=== PATIENT | male | born 1955 | race African-American/Black ===

== ENCOUNTER → 2016-11-06 | Outpatient (CLI) | payer OTHER ==
[2016-01-21 02:18] VITALS: BP 157/76
--- NOTE | 2016-11-06 09:38 | RAD ---
HISTORY: Right wrist pain without injury. Study: Three views of the right wrist. Comparison: Right wrist dated May 06, 2014. Findings: Healed right distal radius fracture. 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 Healed ri ght distal 5th metacarpal fracture. No acute cortical disruption or dislocation can be identified. No significant soft tissue swelling or injury can be seen. IMPRESSION: Chronic findings as above. Reported By:
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
== END | disposition home or self-care (01) | DRG 556 ==
LOC: RAD 09:10
PROVIDERS: ATTEND Plastic Surgery
DX: M79.641 Pain in right hand (principal); M19.031 Primary osteoarthritis, right wrist; M19.041 Primary osteoarthritis, right hand
CPT/HCPCS: 73100; 73130

== ENCOUNTER 2017-06-08 22:38 | Emergency (ER) | payer BC, OTHER ==
[2017-06-08 22:57] VITALS: BP 117/59; BMI 18.2
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
[2017-06-08] MEDS ORDERED: DEMEROL INJ IM ONE (23:33)
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
[2017-06-09] MEDS ORDERED: DEMEROL INJ ONE (00:59)
== END 2017-06-09 01:02 | disposition home or self-care (01) ==
LOC: ER 22:38
DX: R22.0 Localized swelling, mass and lump, head (principal); Y04.2XXA Assault by strike against or bumped into by another person, initial encounter
CPT/HCPCS: 70150; 96372; 99282; 99283; J2175

== ENCOUNTER 2022-06-07 15:23 | Observation (INO) ==
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
[2022-06-07 16:59] LABS: BASOPHILS % (AUTO) 0.5 % (0.2-1.0); EOSINOPHILS % (AUTO) 0.4 % (0.9-2.9); HEMOGLOBIN 12.8 g/dL (13.5-18.0); LYMPHOCYTES # (AUTO) 2.9 X10^3/uL (1.3-2.9); LYMPHOCYTES % (AUTO) 33.8 % (21.0-51.0); MEAN CORPUSCULAR HEMOGLOBIN 31.4 pg (27.0-34.0); MEAN CORPUSCULAR HGB CONC 34.5 g/dL (33.0-35.0); MEAN CORPUSCULAR VOLUME 91.1 fL (80.0-100.0); MEAN PLATELET VOLUME 7.9 fL (7.4-11.0); MONOCYTES # (AUTO) 0.5 x10^3/uL (0.3-0.8); MONOCYTES % (AUTO) 5.6 % (0.0-13.0); NEUTROPHILS # (AUTO) 5.2 x10^3/uL (2.2-4.8); NEUTROPHILS % (AUTO) 59.7 % (42.0-75.0); RED BLOOD COUNT 4.07 X10^6/uL (4.7-6.0); RED CELL DISTRIBUTION WIDTH 13.6 % (11.6-16.5); WHITE BLOOD COUNT 8.7 X10^3/uL (3.6-10.0)
[2022-06-07 17:11] LABS: ALANINE AMINOTRANSFERASE 32 Units/L (12-78); ALBUMIN 3.4 g/dL (3.4-5.0); ALKALINE PHOSPHATASE 59 Units/L (46-116); ASPARTATE AMINO TRANSFERASE 33 Units/L (15-37); BLOOD UREA NITROGEN 11 mg/dL (7-18); CALCIUM 9.1 mg/dL (8.5-10.1); CARBON DIOXIDE 25.7 mmol/L (21-32); CHLORIDE 100 mmol/L (98-107); CREATININE 0.78 mg/dL (0.70-1.30); SODIUM 137 mmol/L (136-145); TOTAL PROTEIN 7.1 g/dL (6.4-8.2); eGFR NON BLACK RACES > 60 (>60)
[2022-06-07 17:19] LABS: LACTIC ACID 1.7 mmol/L (0.4-2.0)
[2022-06-07] MEDS ORDERED: TORADOL 30 MG VIAL IVP PRN (18:37)
[2022-06-07] MEDS ORDERED: DILAUDID INJ IVP PRN (18:37)
[2022-06-07] MEDS ORDERED: ROXICODONE TAB 15 MG PO PRN (19:49)
[2022-06-07] MEDS ORDERED: VANCOMYCIN IV *PREMIX 1 G/200 ML BAG 1 G/200 ML PIGGYBACK IV ONE (19:49)
[2022-06-07] MEDS ORDERED: ATIVAN TAB 0.5 MG PO PRN (19:53)
[2022-06-07] MEDS: D5 1/2 NS 1,000 ML 1,000 ML IV SCH (20:34)
[2022-06-07 21:37] VITALS: BMI 17.2
[2022-06-08] MEDS: D5 1/2 NS 1,000 ML 1,000 ML IV SCH (05:06)
[2022-06-08 06:07] LABS: BASOPHILS % (AUTO) 0.4 % (0.2-1.0); EOSINOPHILS % (AUTO) 0.7 % (0.9-2.9); HEMATOCRIT 36.4 % (42.0-54.0); HEMOGLOBIN 12.5 g/dL (13.5-18.0); LYMPHOCYTES # (AUTO) 2.7 X10^3/uL (1.3-2.9); LYMPHOCYTES % (AUTO) 44.3 % (21.0-51.0); MEAN CORPUSCULAR HEMOGLOBIN 31.4 pg (27.0-34.0); MEAN CORPUSCULAR HGB CONC 34.4 g/dL (33.0-35.0); MEAN CORPUSCULAR VOLUME 91.3 fL (80.0-100.0); MEAN PLATELET VOLUME 8.3 fL (7.4-11.0); MONOCYTES # (AUTO) 0.5 x10^3/uL (0.3-0.8); MONOCYTES % (AUTO) 7.9 % (0.0-13.0); NEUTROPHILS # (AUTO) 2.9 x10^3/uL (2.2-4.8); NEUTROPHILS % (AUTO) 46.7 % (42.0-75.0); RED BLOOD COUNT 3.99 X10^6/uL (4.7-6.0); RED CELL DISTRIBUTION WIDTH 13.5 % (11.6-16.5); WHITE BLOOD COUNT 6.2 X10^3/uL (3.6-10.0)
[2022-06-08 06:19] LABS: ALANINE AMINOTRANSFERASE 29 Units/L (12-78); ALBUMIN 3.1 g/dL (3.4-5.0); ALKALINE PHOSPHATASE 65 Units/L (46-116); ASPARTATE AMINO TRANSFERASE 32 Units/L (15-37); BLOOD UREA NITROGEN 9 mg/dL (7-18); CALCIUM 8.7 mg/dL (8.5-10.1); CARBON DIOXIDE 25.4 mmol/L (21-32); CHLORIDE 101 mmol/L (98-107); COR CA(FOR HYPOALB) 9.4 mg/dL (8.5-10.1); COR NA(FOR HYPERGLY) 136 mmol/L (136-145); CREATININE 0.76 mg/dL (0.70-1.30); SODIUM 136 mmol/L (136-145); TOTAL PROTEIN 6.5 g/dL (6.4-8.2); eGFR NON BLACK RACES > 60 (>60)
[2022-06-08 08:45] VITALS: BP 142/76
[2022-06-08] MEDS ORDERED: VANCOMYCIN IV *PREMIX 1 G/200 ML BAG 1 G/200 ML PIGGYBACK IV SCH (09:00)
[2022-06-09] MEDS ORDERED: PHARMACY COMMENT IV NR (08:30)
== END 2022-06-08 10:50 | disposition home or self-care (01) ==
LOC: ER 15:23 → MED/SURG 15:23
PROVIDERS: ADMIT Obstetrics & Gynecology Obstetrics; ATTEND Obstetrics & Gynecology Obstetrics
DX: R79.89 Other specified abnormal findings of blood chemistry; Z79.899 Other long term (current) drug therapy; L03.114 Cellulitis of left upper limb; R60.0 Localized edema; M79.602 Pain in left arm